=== PATIENT | male | born 1935 | race Caucasian/White ===

== ENCOUNTER 2016-04-24 07:21 | Day surgery (SDC) | payer MEDICARE, OTHER ==
[2016-04-24] VITALS (10 sets, daily range): BP systolic 131–149; BP diastolic 73–92; PULSE 53–71; RESP 13–17; O2SAT 96–99
[~2016-04-24] VITALS: Ht 175.3 cm; Wt 96.8 kg
[~2016-04-24 07:21] MED LIST: ACET1TAB12 PO; Acetaminophen IV 1,000 mg IV ONE; Bupivacaine Liposome 1.3% 20 mL Inj INFILTRATE SCH; CATHETER TIP IRRIGATION ONE; CeFAZolin Inj 2 GM in IV Premix 1 EACH IV ONE; HYDR25TA4 PO; LEVO150T5 PO; Lactated Ringer's 1,000 ML IV ONE; MERC50TA PO; MITOMYCIN IRRIGATION ONE; OXYB5TAB35 PO; PHEN-684 PO; SIMV5TAB7 PO; lisinopril PO
[2016-04-24] MEDS ORDERED: Propofol 10,000 mCg/mL 20 mL Inj ONE (07:22)
[2016-04-24] MEDS ORDERED: Dexamethasone 4 mg/mL Inj ONE (07:22)
[2016-04-24] MEDS ORDERED: Ondansetron 2 mg/mL 2 mL Inj ONE (07:22)
[2016-04-24] MEDS ORDERED: fentaNYL-PF 50 mCg/mL 2 mL Inj ONE (07:22)
--- NOTE | 2016-04-24 07:26 | PCM.HPANE ---
Patient Data Surgeon Admitting Provider: Attending Provider:Jayden Nguyen MD Primary Care Physician:Katalina Other Provider:Evan Woods Anesthesia Reason for Visit Bladder Cancer Ht/WT & BMI Height (Feet): 5 Height (Inches): 9 Weight (Kilograms): 99.79 Body Mass Index 32.00 Allergies Coded Allergies: Sulfa (Sulfonamide Antibiotics) (Verified Allergy, Unknown, UNKNOWN, ) Past Anesthesia History Anesthesia History: Denies:: Anesthesia Reactions, Malignant Hyperthermia Diabetes History Hx Diabetes?: No MRSA MRSA: No Medications Hypertension Medication: Yes (LISINOPRIL,HCTZ) Reported Medications Losartan Potassium 100 Mg [id number] Mg PO DAILY #30 04/24/16 Mercaptopurine 50 Mg Tblpbr57 Mg PO DAILY 04/01/15 Levothyroxine 150 Mcg [id number] Mcg PO DAILY Ref 0 04/01/15 Hydrochlorothiazide 25 Mg Ncgbok77 Mg PO DAILY 30 Days Ref 0 04/01/15 Simvastatin 5 Mg Tablet5 Mg PO HS Ref 0 04/01/15 Discontinued Reported Medications Acetaminophen/Codeine 300-30mg (Tylenol/Codeine #3)1 Each Tablet1 Tablet PO Q4H PRN Pain Ref 0 04/21/16 Phenazopyridine (Pyridium)200 Mg Gpguoj499 Mg PO TID PRN For Pain Ref 0 04/21/16 Oxybutynin Chloride ER (Ditropan XL)5 Mg Tab.er.245 Mg PO Q4-6H PRN PRN Ref 0 04/21/16 [lisinopril] No Conflict Check40 PO DAILY AM Ref 0 02/05/08 Fluticasone/Salmeterol (Advair 500-50 Diskus)1 Each Disk.w.dev1 Puff IH BID PRN PRN #1 DISK Ref 0 04/01/15 History History of ENT Problems?: No Hx of Heart Problems?: Yes Cardiovascular History: Positive for:: Hypertension (HYPERLIPIDEMIA) Denies:: Heart Murmur Hx of Respiratory Problem?: Yes Respiratory History: Positive for:: Asthma Dyspnea (CLIFFORD W/ OCCAS WHEEZING) Emphysema (MILD) Denies:: Use of C-PAP Machine Hx Neurologic Problems?: No Hx of GI Problems?: Yes Gastrointestinal History: Denies:: Gastrointestinal Bleeding (HX OF EOSINOPHILIC SYNDROME (?GASTRITIS?) & HX OF GASTROPARESIS) Other GI Pertinent History: S/P APPY Hx of Problems?: Yes Genitourinary History: Positive for:: Urinary Tract Infection (HX OF) Other Pertinent History: S/P MULT. CYSTOS,TURBT X2,CIRCUMCISION HX LUTS, BALANITIS BLADDER CA=CURRENT PROBLEM Male Hx: Positive for:: Prostate Problems (S/P TURP (PVP)) Testicular Surgery (S/P VASECTOMY) Denies:: Scrotal Mass Skin History: Denies:: History Skin Disorders? Pressure Ulcers Hx Musculoskeletal Problems?: Yes Hx of Psycho/Social Problems?: No Hx Surgeries?: Yes (THYROIDECTOMY,TURBT X2,SPINAL SURGERY,APPY,TURBNC,TURP, VASECTOMY,CIRCUMCISI) Hx Any Other Health Problems?: Yes Other History: Positive for:: Cancer (BLADDER,THYROID) Thyroid Disease (S/P THYROIDECTOMY FOR CA) Denies:: Endocrine Disease Hospitalization History Blood Transfusions: Denies:: Blood Transfusions Hx Diabetes: No Hx Alcohol Use: Yes (OCCAS)Hx Substance Use: No Smoking Status: Former Smoker Have You Smoked inLast 12 mo: NoApprox How Many Cigarettes/day: 20YR HX Stop/Bang S-Snoring: Do You Snore Loudly: No T-Tired: feel tired, fatigued: No O-Obsered: Observed not breath: Yes P-Blood Pressure: treated: Yes B- Body Mass Index > 35 kg/m2: No A- Age over 50: Yes N- Neck Large Circumference: No G- Gender Male: Yes HAJA Total Score: 4 Risk Assessment Category Category 1A: Patient has history of documented sleep apnea, and HAS NOT received any narcotic, sedative or anesthesia administration during this stay. Category 1B: Patient has history of documented sleep apnea, and HAS received any narcotic , sedative or anesthesia administration during this stay Category 2: Patient has SUSPECTED Obstructive Sleep Apnea, and HAS received any narcotic , sedative or anesthesia administration during this stay. Category 3: Patient has SUSPECTED Obstructive Sleep Apnea and HAS NOT received narcotic, sedative or anesthesia administration during this stay. Category 4: Outpatient in Procedural Areas with known sleep apnea or who screen positive for High Risk via the STOP/BANG questionnaire. Exam Exam General Appearance: Alert, Oriented X3, Cooperative, No Acute Distress HEENT/AIRWAY: MP 1 Lungs: Normal Air Movement Heart: Exam Unremarkable Plan Impression Patient chart reviewed, patient interviewed and anesthestic plan with risks, benefits, and alternatives discussed, and informed consent obtained. NPO Status: 04/04@1900 ASA Physical Status: ASA2 Mod Systemic Disease Anesthetic Plan: GA Bene/Risks/Altern/Consents: Yes HP Complete Prior to Induction: Yes Kalie Cullen DO Apr 24, 2016 07:26
[2016-04-24] MEDS ORDERED: LOSA100T29 PO (08:01)
[2016-04-24] MEDS ORDERED: Belladonna Alk-Opium 60 mg Rectal Suppository RECTAL ONE (09:08)
[2016-04-24] MEDS ORDERED: Phenylephrine 10,000 mCg/mL Inj IVPUSH PRN (09:25)
[2016-04-24] MEDS ORDERED: EPHEDrine Sulfate 50 mg/mL Inj IVPUSH PRN (09:25)
[2016-04-24] MEDS ORDERED: Lactated Ringer's 1,000 ML IV SCH (09:25)
[2016-04-24] MEDS ORDERED: MetoCLOpramide 5 mg/mL 2 mL Inj IVPUSH PRN (09:25)
[2016-04-24] MEDS ORDERED: Ondansetron 2 mg/mL 2 mL Inj IVPUSH PRN (09:25)
[2016-04-24] MEDS ORDERED: HYDROmorphone 1 mg/mL Inj IVPUSH PRN (09:25)
[2016-04-24] MEDS ORDERED: Lactated Ringer's 500 ML IV PRN (09:25)
[2016-04-24] MEDS ORDERED: fentaNYL-PF 50 mCg/mL 2 mL Inj IVPUSH PRN (09:25)
[2016-04-24] MEDS ORDERED: Belladonna Alk-Opium 60 mg Rectal Suppository PR ONE (09:55)
--- NOTE | 2016-04-24 10:26 | PCM.ANEP1 ---
Post Anesthesia Phase 1 PACU Phase 1 Assessment Vital Signs Vital Signs Date Time Temp Pulse Resp B/P Pulse Ox O2 Delivery O2 Flow Rate FiO2 04/24/16 07:49 36.1 64 17 149/83 98 Room Air Anesthetic Administered: GA Level of Alertness: Awake, talking BUCIO's with Equal Strength: Yes Pain: No Nausea or Vomiting: No Oxygen Delivery: Simple Mask Lungs: Normal Air Movement Kalie Cullen DO Apr 24, 2016 10:26
--- NOTE | 2016-04-24 10:27 | PCM.ANEP2 ---
Post Anesthesia Evaluation ASA/CMS Post Anesthesia VS in Patient's Normal Range?: Yes Resp Stable; Airway Patent?: Yes CV Function & Hydration Stable: Yes Mental Status Recovered?: Yes Pain control Satisfactory?: Yes N/V Control Satisfactory?: Yes Kalie Cullen DO Apr 24, 2016 10:26
--- NOTE | 2016-04-26 07:24 | OP ---
[address] [address] OPERATIVE REPORT PATIENT: ANAI MORIN : 1935 MR#: [id number] ADMIT: 04/24/2016 JOB ID: [id number] DATE OF SURGERY: 04/24/2016 PREOPERATIVE DIAGNOSIS(ES): 1. History of bladder cancer. 2. Rule out recurrent carcinoma of the bladder. POSTOPERATIVE DIAGNOSIS(ES): 1. History of bladder cancer. 2. Rule out recurrent carcinoma of the bladder. OPERATION PERFORMED: 1. Cystoscopy. 2. Bladder biopsy. 3. Fulguration. 4. Installation of mitomycin-C, 20 mg suspended in 20 cc sterile normal saline. SURGEON: Jayden Nguyen MD ANESTHESIOLOGIST: . ANESTHESIA: General. FINDINGS: Urethra normal. Extensive bladder neck. bladder neck contracture, but it did not impair passage of the 25-Divehi panendoscope. The bladder showed 1+ trabeculation and areas of patchy erythema, mainly in the posterior wall, extending up into the right and right lateral wall. Global Security Architect biopsies from the posterior wall and right lateral wall were obtained, labeled appropriately as the site of and sent to pathology for routine gross and microscopic examination. PROCEDURE SUMMARY: The patient was positioned supine and was administered general anesthesia. The abdomen, genitalia and groin were then prepped and draped in a sterile fashion. The 25-Divehi panendoscope was then passed through the lower urinary tract with the findings as described above. It was then treated with the cold cut biopsy forceps and a financial sales representative biopsy was obtained from the posterior wall, and also the right lateral wall, labeled appropriately as the site of submitted to pathology gross and microscopic examination. Next, the scope was with the Short element with a button cautery, and this was then used to cauterize the biopsy sites for hemostasis. The bladder was then left partially filled, all instrumentation removed, and then an 18-Divehi Dwyer catheter was inserted. The balloon was inflated to 10 cc. The contents of the bladder were then drained, and then 20 mg of mitomycin-C suspended in 20 cc of sterile saline were then instilled in the bladder for anticipated 2-hour postoperative retention. The patient was then repositioned supine, awakened, transferred to a gurney, and transferred to recovery in stable condition.
--- NOTE | 2016-04-28 10:08 | PATH ---
SURGICAL PATHOLOGY Attending Physician:Jayden Nguyen MD CASE STATUS: Signed Out PATIENT NAME: ANAI MORIN PID: [id number] : 1935 DATE COLLECTED:04/24/2016 00:00 SPECIMEN: Urine, Cytology, Thin Prep CLINICAL HISTORY: Bladder Cancer 1). Urine FINAL DIAGNOSIS: 1.URINE CYTOLOGY SPECIMEN (THINPREP): POSITIVE FOR MALIGNANT UROTHELIAL CELLS. ICD10 CODE R82.8 GROSS DESCRIPTION: Received fresh on 04/25/2016 is approximately 105 cc of clear yellow fluid. Prepared is one ThinPrep slide. vo/hk MICRO DESCRIPTION: See diagnosis. ICD-9 CODES: CPT CODES: 1: 81087 Electronically Signed Out Quentin Stewart MD [facility] Pathology [facility] [address], [place] [address] Technical component performed at [facility], [address] [place] [address] Ave[address], [place], [address]
== END 2016-04-24 23:59 | disposition home or self-care (01) ==
LOC: SAS 07:21
PROVIDERS: ATTEND Specialist
DX: C67.9 Malignant neoplasm of bladder, unspecified (principal); I10 Essential (primary) hypertension; J45.909 Unspecified asthma, uncomplicated
CPT/HCPCS: 52204; 88112; 88305; J0131; J0690; J1100; J2405; J3010; J7120; J9280